=== PATIENT | female | born 1995 | race American Indian/Alaskan Native ===

== ENCOUNTER 2018-08-16 08:35 | Outpatient (CLI) | payer OTHER ==
--- NOTE | 2018-08-16 10:05 | Ultrasound Report ---
ULTRASOUND PELVIC COMPLETE ULTRASOUND TRANSVAGINAL HISTORY: Heavy menstruation, menorrhagia. COMPARISON: None at this facility. TECHNIQUE: Transabdominal and transvaginal ultrasound with color doppler interrogation. FINDINGS: Uterus: The uterus is retroflexed. The uterus measures 6.4 x 2.7 x 3.9 cm. No uterine fibroids are detected. Normal cervix.. Endometrium: 4 mm. No focal abnormality. Right ovary: 2.8 x 1.2 x 2.4 cm. Normal follicles are identified. Left ovary: 3.1 x 1.4 x 2.1 cm. Normal follicles are identified. No pelvic fluid or mass is identified. Normal color doppler interrogation. IMPRESSION: Unremarkable transabdominal and transvaginal pelvic ultrasounds.
== END 2018-08-16 08:36 | disposition home or self-care (01) ==
LOC: SPVWC 08:35 → US 08:36
PROVIDERS: ATTEND Family Medicine
DX: N92.0 Excessive and frequent menstruation with regular cycle (principal)
CPT/HCPCS: 76830; 76856

== ENCOUNTER 2021-10-25 01:39 | Emergency (ER) | payer OTHER ==
[2021-10-25] MEDS ORDERED: diphenhydrAMINE 50 MG/ML VIAL IV STA (04:16)
--- NOTE | 2021-10-25 06:29 | Cat Scan Report ---
CT HEAD WITHOUT CONTRAST INDICATION / CLINICAL INFORMATION: intoxication/ fall head and face trauma. TECHNIQUE: CT head was performed without administration of intravenous contrast. All CT scans at this location are performed using CT dose reduction for ALARA by means of automated exposure control. COMPARISON: None available. FINDINGS: CEREBRAL HEMISPHERES: There is no evidence of large territorial infarction or significant abnormality of velasco-white matter differentiation. Ventricles within normal limits. No midline shift. Basal ciste rns patent. HEMORRHAGE: None. CEREBELLUM / BRAINSTEM: No significant abnormality. ORBITS: No significant abnormality. SOFT TISSUES: No significant abnormality. SKULL: No significant abnormality. PARANASAL SINUSES / MASTOID AIR CELLS: Normal as visualized. ADDITIONAL FINDINGS: None. IMPRESSION: 1. No acute intracranial abnormality. Signer Name: Adan Carrillo II, MD Signed: 10/25/2021 6:24 AM Workstation Name: [id number]
--- NOTE | 2021-10-25 06:32 | Cat Scan Report ---
CT MAXILLOFACIAL WITHOUT CONTRAST INDICATION / CLINICAL INFORMATION: intoxication/ fall head and face trauma. TECHNIQUE: CT face was performed without the administration of intravenous contrast. In addition to a xial source images, coronal and sagittal MPR series were provided. All CT scans at this location are performed using CT dose reduction for ALARA by means of automated exposure control. COMPARISON: None available. FINDINGS: FACIAL BONES: Allowing for the thickness of slice acquisition, No fracture or other significant abnor mality. PARANASAL SINUSES: No significant abnormality. ORBITS: No significant abnormality. SOFT TISSUES: No significant abnormality. VISUALIZED INTRACRANIAL STRUCTURES: No significant abnormality. ADDITIONAL FINDINGS: Multiple dental caries. Additionally bilateral mandibular and maxillary molars a ppear impacted. IMPRESSION: 1. No fracture of the face or mandible. 2. Impacted wisdom teeth. Signer Name: Adan Carrillo II, MD Signed: 10/25/2021 6:28 AM Workstation Name: [id number]
--- NOTE | 2021-10-25 06:33 | Cat Scan Report ---
CT CERVICAL SPINE WITHOUT CONTRAST INDICATION / CLINICAL INFORMATION: intoxication/ fall head and face trauma. TECHNIQUE: Axial CT images were obtained through the cervical spine. Sagittal and coronal reformatted images were produced. All CT scans at this location are performed using CT dose reduction for ALARA by means of automated exposure control. COMPARISON: None available. FINDINGS: MANDIBLE: No significant abnormality of the visualized mandible or TMJs. SKULL BASE: No significant abnormality of the skull base. CRANIOCERVICAL JUNCTION: No significant abnormality of the craniocervical junction. ALIGNMENT: No significant abnormality of alignment. VERTEBRAL BODIES: Vertebral body heights fairly uniform throughout. No acute fracture. DISK SPACES: Disk spaces are fairly uniform throughout. FACET JOINTS: No significant abnormality of facet articulations. No acute fractures. CENTRAL CANAL: No severe central stenosis. SOFT TISSUES: No significant abnormality of soft tissues or musculature. THYROID: No significant abnormality. UPPER CHEST: No significant abnormality of the visualized chest. ADDITIONAL FINDINGS: None. IMPRESSION: 1. No evidence of acute osseous injury. Signer Name: Adan Carrillo II, MD Signed: 10/25/2021 6:29 AM Workstation Name: [id number]
--- NOTE | 2021-10-25 07:23 | Emergency Department Report ---
ED Alcohol HPI - General Chief Complaint: Fall Stated Complaint: ETOH/CHIN LAC Time Seen by Provider: 10/25/21 03:11 Source: EMS Mode of arrival: Stretcher Limitations: No Limitations - History of Present Illness Initial Comments: 26-year-old female Fatimah emerge apartment with her mom who reports that there are celebrating her birthday at a local club that she had wanted. During that time her daughter became quite inebriated and it was recommended that she be removed from the club by security. While the mom went to pull the car around she reportedly had an unwitnessed fall landing face first onto the ground resulting in a chin laceration and some reported facial swelling. She reports no neck pain. Reports no chest pain. No hemoptysis no hematemesis hematochezia. Ms. Hansen is alert but tangential behavior most likely due to intoxication MD Complaint: alcohol intoxication Last Drink: just [employer] Recent Trauma: Yes (Unwitnessed fall in the nightclub resulting in a chin laceration. There is) Associated Symptoms: denies: vomiting, seizure, tremors, abdominal pain, hematemesis, depression, suicidality Treatments Prior to Arrival: none - Related Data Home Medications Medication Instructions Recorded Confirmed Last Taken medroxyPROGESTERone ACETATE 150 mg IM ONCE 10/26/13 10/26/13 08/15/13 [Depo-Provera (Contraception)] Previous Rx's Medication Instructions Recorded Last Taken Type Acetaminophen/Codeine [Tylenol #3] 1 tab PO Q6H PRN #14 tab 10/27/13 Unknown Rx Ibuprofen [Motrin 400 MG tab] 400 mg PO Q8H #30 tablet 10/27/13 Unknown Rx Allergies Allergy/AdvReac Type Severity Reaction Status Date / Time No Known Allergies Allergy Verified 10/26/13 22:38 ED Review of Systems ROS: Stated complaint: ETOH/CHIN LAC Other details as noted in HPI Comment: All other systems reviewed and negative ED Past Medical Hx - Past Medical History Previous Medical History?: No - Surgical History Past Surgical History?: No Additional Surgical History: t&a - Social History Smoking Status: Never Smoker Substance Use Type: Alcohol - Medications Home Medications: Home Medications Medication Instructions Recorded Confirmed Last Taken Type medroxyPROGESTERone ACETATE 150 mg IM ONCE 10/26/13 10/26/13 08/15/13 History [Depo-Provera (Contraception)] Acetaminophen/Codeine [Tylenol #3] 1 tab PO Q6H PRN #14 tab 10/27/13 Unknown Rx Ibuprofen [Motrin 400 MG tab] 400 mg PO Q8H #30 tablet 10/27/13 Unknown Rx ED Physical Exam - General Limitations: No Limitations General appearance: alert, in no apparent distress, appears intoxicated - Head Head exam: Present: normocephalic, other (Small laceration to the chin 2 cm) - Eye Eye exam: Present: normal appearance, PERRL, EOMI. Absent: nystagmus - ENT ENT exam: Present: normal exam, mucous membranes moist - Neck Neck exam: Present: normal inspection, full ROM. Absent: tenderness, meningismus, lymphadenopathy - Respiratory Respiratory exam: Present: normal lung sounds bilaterally. Absent: respiratory distress, wheezes, rales, chest wall tenderness, accessory muscle use - Cardiovascular Cardiovascular Exam: Present: regular rate, normal rhythm. Absent: systolic murmur, diastolic murmur, rubs, gallop - GI/Abdominal GI/Abdominal exam: Present: soft, normal bowel sounds - Extremities Exam Extremities exam: Present: normal inspection - Back Exam Back exam: Present: normal inspection - Neurological Exam Neurological exam: Present: alert, oriented X3 - Psychiatric Psychiatric exam: Present: normal affect, normal mood - Skin Skin exam: Present: warm, dry, intact, normal color. Absent: rash ED Course Vital Signs 10/25/21 01:40 Temperature 97.6 F Pulse Rate 79 Respiratory 18 Rate Blood Pressure 116/74 O2 Sat by Pulse 100 Oximetry ED Medical Decision Making - Radiology Data Radiology results: report reviewed [address] [address] Cat Scan Report Signed Patient: MANINDER SUÁREZ MR#: [id number] : 1995 Acct:[id number] Age/Sex: 26 / F ADM Date: 10/25/21 Loc: ED Attending Dr: Ordering Physician: ROBERT POMPA Date of Service: 10/25/21 Procedure(s): CT cervical spine wo con Accession Number(s): [id number] cc: ROBERT POMPA CT CERVICAL SPINE WITHOUT CONTRAST INDICATION / CLINICAL INFORMATION: intoxication/ fall head and face trauma. TECHNIQUE: Axial CT images were obtained through the cervical spine. Sagittal and coronal reformatted images were produced. All CT scans at this location are performed using CT dose reduction for ALARA by means of automated exposure control. COMPARISON: None available. FINDINGS: MANDIBLE: No significant abnormality of the visualized mandible or TMJs. SKULL BASE: No significant abnormality of the skull base. CRANIOCERVICAL JUNCTION: No significant abnormality of the craniocervical junction. ALIGNMENT: No significant abnormality of alignment. VERTEBRAL BODIES: Vertebral body heights fairly uniform throughout. No acute fracture. DISK SPACES: Disk spaces are fairly uniform throughout. FACET JOINTS: No significant abnormality of facet articulations. No acute fractures. CENTRAL CANAL: No severe central stenosis. SOFT TISSUES: No significant abnormality of soft tissues or musculature. THYROID: No significant abnormality. UPPER CHEST: No significant abnormality of the visualized chest. ADDITIONAL FINDINGS: None. IMPRESSION: 1. No evidence of acute osseous injury. Signer Name: Garcia Burciaga II, MD Signed: 10/25/2021 6:29 AM Workstation Name: [id number] Transcribed By: ROBERT Dictated By: GARCIA BURCIAGA II, MD Electronically Authenticated By: GARCIA BURCIAGA II, MD Signed Date/Time: 10/25/21628 DD/ 7 TD/TT: CT scan head and face also normal Critical care attestation.: If time is entered above; I have spent that time in minutes in the direct care of this critically ill patient, excluding procedure time. ED Disposition Clinical Impression: Head injury, Chin laceration, Alcohol abuse Disposition: 01 HOME / SELF CARE / HOMELESS Is pt being admited?: No Does the pt Need Aspirin: No Condition: Stable Instructions: Alcohol Use Disorder, Substance Use Disorder and Mental Illness, How to Use Cold Therapy, [id number], Laceration Care, Adult, [id number], Sutures, [place], or Adhesive Wound Closure, [id number] Additional Instructions: 26-year-old female [facility] emergency department evaluated for head injury related to alcohol abuse. CT scans were of the head face and neck were obtained and did not show any urgent or emergent processes and were unremarkable. Chin laceration was repaired with tissue adhesive and no further wound care is needed with exception of keeping wound dry and clean. Be sure to follow-up with your primary care provider in 3 to days for reevaluation you may return to the emergency department should you develop any severe headaches, unsteady gait, or any suggestion that your condition is working worsening Referrals: PRIMARY CAREMD [Primary Care Provider] - 3-5 Days [facility] [Provider Group] - 3-5 Days JANY WAHL MD [Staff Physician] - 3-5 Days
[2021-10-25 08:37] VITALS: BP 114/80
== END 2021-10-25 08:00 | disposition home or self-care (01) ==
LOC: ED 01:39
DX: S01.81XA Laceration without foreign body of other part of head, initial encounter (principal); F10.10 Alcohol abuse, uncomplicated; Z72.89 Other problems related to lifestyle; Z79.899 Other long term (current) drug therapy; Y90.9 Presence of alcohol in blood, level not specified; W26.8XXA Contact with other sharp object(s), not elsewhere classified, initial encounter; Y93.89 Activity, other specified; Y92.89 Other specified places as the place of occurrence of the external cause; Y99.8 Other external cause status
CPT/HCPCS: 12011; 70450; 70486; 72125; 96374; 99284; J1200